=== PATIENT | female | born 1955 | race Caucasian/White ===

== ENCOUNTER 2018-02-17 18:11 | Emergency (ER) | payer OTHER ==
[2018-02-17 18:17] VITALS: BP 158/68
--- NOTE | 2018-02-17 18:56 | EDM.PDOC ---
ED HPI GENERAL MEDICAL PROBLEM - General Chief Complaint: Lower Extremity Injury/Pain Stated Complaint: right ankle pain Time Seen by Provider: 02/17/18 18:38 Source of Information: Reports: Patient History Limitations: Reports: No Limitations - History of Present Illness INITIAL COMMENTS - FREE TEXT/NARRATIVE: Has been having right ankle pain for the last several days that is progressively getting worse. Denies any injury. 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 Has had pain in the past but not this bad. Pain is worst after she has been off of it for short time and then tries to walk on it again. Denies any numbness or tingling to it. Location: Reports: Lower Extremity, Right Quality: Reports: Throbbing Severity: Moderate Right Ankle Pain Score (Numeric/FACES): 3 - Related Data Allergies Allergy/AdvReac Type Severity Reaction Status Date / Time acetaminophen Allergy Rash Verified 02/17/18 18:13 [From Darvocet-N] propoxyphene napsylate Allergy Rash Verified 02/17/18 18:13 [From Darvocet-N] Home Meds: Home Meds Estradiol 1 mg PO DAILY 11/08/15 [History] Fenofibrate 160 mg PO DAILY 11/08/15 [History] Insulin Detemir [Levemir Flextouch] 60 units SUBCUT DAILY 11/08/15 [History] Lisinopril 10 mg PO DAILY 11/08/15 [History] Rosuvastatin [Crestor] 20 mg PO DAILY 11/08/15 [History] metFORMIN [Glucophage XR] 500 mg PO DAILY 11/08/15 [History] Aspirin/Caffeine [Anacin 400-32 mg Tablet] 1 tab PO DAILY 12/13/17 [History] Cholecalciferol (Vitamin D3) [Vitamin D3] 1,000 unit PO DAILY 12/13/17 [History] Cyanocobalamin (Vitamin B-12) [Cyanocobalamin Injection] 1,000 mcg SQ Q30D 12/13 [History] Liraglutide [Victoza] 1.8 mg SQ DAILY 12/13/17 [History] Magnesium 250 mg PO DAILY 12/13/17 [History] Naproxen Sodium [Aleve] 220 mg PO DAILY PRN 02/17/18 [History] Ubidecarenone [Coq10] 1 cap PO DAILY 02/17/18 [History] Past Medical History HEENT History: Reports: Allergic Rhinitis, Sinusitis Cardiovascular History: Reports: High Cholesterol, Hypertension, Other (See Below) Other Cardiovascular History: left carotid bruit Genitourinary History: Reports: Other (See Below) Other Genitourinary History: nocturia Musculoskeletal History: Reports: Arthritis Other Musculoskeletal History: achilles tendinitis Endocrine/Metabolic History: Reports: Diabetes, Type II, Vitamin D Deficiency Dermatologic History: Reports: Other (See Below) Other Dermatologic History: nummular eczema - Past Surgical History HEENT Surgical History: Reports: Tonsillectomy GI Surgical History: Reports: Colonoscopy Female Surgical History: Reports: Hysterectomy Musculoskeletal Surgical History: Reports: Arthroscopic Knee, Knee Replacement Social & Family History - Tobacco Use Smoking Status *Q: Never Smoker Review of Systems - Review of Systems Review Of Systems: See Below Musculoskeletal: Reports: Foot Pain, Joint Swelling ED EXAM, GENERAL - Physical Exam Exam: See Below Exam Limited By: No Limitations General Appearance: Alert, Moderate Distress Extremities: Normal Range of Motion, Other (Tender to the lateral maleolus and along the fifth metatarsal area. No numbness or tingling. No bruising or open areas. Good pulses noted. Does have increase in pain with weightbearing.) Neurological: Alert Skin Exam: Warm, Dry, Intact Course - Vital Signs Last Recorded V/S: Last Vital Signs Temp 98.4 F 02/17/18 18:14 Pulse 104 H 02/17/18 18:14 Resp 20 02/17/18 18:14 BP 158/68 H 02/17/18 18:14 Pulse Ox 95 02/17/18 18:14 - Orders/Labs/Meds Orders: Active Orders 24 hr Category Date Time Status Ankle Min 3V Rt [CR] Stat Exams 02/17/18 18:23 Ordered Labs: Laboratory Tests 02/17/18 02/17/18 Range/Units 18:30 18:30 WBC 6.9 (5.0-10.0) 10^3/uL RBC 4.18 (4.00-5.50) 10^6/uL Hgb 12.6 (12.0-16.0) g/dL Hct 37.6 (37.0-47.0) % MCV 90.0 (82.0-94.0) fL MCH 30.1 (27.0-32.0) pg MCHC 33.5 (33.0-38.0) g/dL RDW Coeff of Greg 12.8 (11.0-15.0) % Plt Count 242 (150-400) 10^3/uL Neut % (Auto) 51.0 (35-85) % Lymph % (Auto) 37.1 (10-55) % [place] % (Auto) 8.6 (0-16) % Eos % (Auto) 3.0 (0-5) % Baso % (Auto) 0.3 (0-3) % Neut # (Auto) 3.52 (1.80-7.00) 10^3/uL Lymph # (Auto) 2.56 (1.00-4.80) 10^3/uL [place] # (Auto) 0.59 (0.00-0.80) 10^3/uL Eos # (Auto) 0.21 (0.00-0.45) 10^3/uL Baso # (Auto) 0.02 10^3/uL Uric Acid 5.4 (2.6-6.0) mg/dL C-Reactive Protein < 0.2 L (0.2-0.8) mg/dL Departure - Departure Time of Disposition: 19:00 Disposition: Home, Self-Care 01 Condition: Good Clinical Impression: Arthritis - Discharge Information Instructions: Arthritis, [id number] Additional Instructions: Aleve 1 tablet twice a day for inflammation and pain Tramadol that you have at home for pain if needed. recheck if not getting better Keep appt on Wednesday if ferrell continues. - Problem List & Annotations (1) Arthritis SNOMED Code(s): 6149374 Code(s): M19.90 - UNSPECIFIED OSTEOARTHRITIS, UNSPECIFIED SITE Status: Acute - Problem List Review Problem List Initiated/Reviewed/Updated: Yes - My Orders Last 24 Hours: My Active Orders 02/17/18 18:23 Ankle Min 3V Rt [CR] Stat - Assessment/Plan Last 24 Hours: My Active Orders 02/17/18 18:23 Ankle Min 3V Rt [CR] Stat
== END 2018-02-17 19:05 | disposition home or self-care (01) ==
LOC: CC.ED 18:11
DX: M19.90 Unspecified osteoarthritis, unspecified site (principal); E11.9 Type 2 diabetes mellitus without complications; I10 Essential (primary) hypertension; Z88.8 Allergy status to other drugs, medicaments and biological substances; Z79.899 Other long term (current) drug therapy
CPT/HCPCS: 36415; 73610-RT; 84550; 85025; 86140; 99283

== ENCOUNTER 2018-07-10 20:47 | Emergency (ER) | payer OTHER ==
[2018-07-10 20:51] VITALS: BP 147/62
[2018-07-10 21:35] LABS: CHLORIDE,CL 102 mEq/L (98-106); SODIUM,NA 142 mEq/L (136-145)
--- NOTE | 2018-07-10 21:47 | EDM.PDOC ---
ED HPI GENERAL MEDICAL PROBLEM - General Chief Complaint: General Stated Complaint: pain to left arm, increased BS Time Seen by Provider: 07/10/18 21:27 - History of Present Illness INITIAL COMMENTS - FREE TEXT/NARRATIVE: Celina is a 63 year old female who presents to the ED with c/o pain and swelling to medial aspect of left elbow. She reports that the pain came on this evening. She then checked her blood sugar and it was in the 300's so she became concerned and presented to the ED. She describes the pain as an achy sharp sensation on the medial aspect of her left elbow. Reports it does sometimes radiate down her arm and around. She denies any injury to the area. Denies any overuse of her elbow. Denies any redness or warmth to the affected area. Has not had any fever/chills. Reports she had similar pain and swelling 3 weeks ago and it just went away on its own. She has not tried any heat/ice. Has not taken any medications. She denies any other symptoms or complaints. Onset: Today, Sudden Location: Reports: Upper Extremity, Left Quality: Reports: Ache, Sharp Severity: Severe Improves with: Reports: None Worsens with: Reports: Other (palpitation), Movement Context: Reports: Activity, Lifting Associated Symptoms: Reports: Other (elevated blood sugar). Denies: Confusion, Chest Pain, Cough, cough w sputum, Diaphoresis, Fever/Chills, Headaches, Loss of Appetite, Malaise, Nausea/Vomiting, Rash, Seizure, Shortness of Breath, Syncope, Weakness Left Upper Arm Pain Score (Numeric/FACES): 7 - Related Data Allergies Allergy/AdvReac Type Severity Reaction Status Date / Time acetaminophen Allergy Rash Verified 07/10/18 20:51 [From Darvocet-N] propoxyphene napsylate Allergy Rash Verified 07/10/18 20:51 [From Darvocet-N] Home Meds: Home Meds Estradiol 1 mg PO DAILY 11/08/15 [History] Fenofibrate 160 mg PO DAILY 11/08/15 [History] Insulin Detemir [Levemir Flextouch] 55 units SUBCUT QPM 11/08/15 [History] Lisinopril 10 mg PO DAILY 11/08/15 [History] Rosuvastatin [Crestor] 20 mg PO DAILY 11/08/15 [History] metFORMIN [Glucophage XR] 500 mg PO BID 11/08/15 [History] Aspirin/Caffeine [Anacin 400-32 mg Tablet] 1 tab PO DAILY 12/13/17 [History] Cholecalciferol (Vitamin D3) [Vitamin D3] 1,000 unit PO DAILY 12/13/17 [History] Cyanocobalamin (Vitamin B-12) [Cyanocobalamin Injection] 1,000 mcg SQ Q30D 12/13 [History] Liraglutide [Victoza] 1.8 mg SQ DAILY 12/13/17 [History] Magnesium 250 mg PO DAILY 12/13/17 [History] Naproxen Sodium [Aleve] 220 mg PO DAILY PRN 02/17/18 [History] Ubidecarenone [Coq10] 1 cap PO DAILY 02/17/18 [History] Past Medical History HEENT History: Reports: Allergic Rhinitis, Sinusitis Cardiovascular History: Reports: High Cholesterol, Hypertension, Other (See Below) Other Cardiovascular History: left carotid bruit Genitourinary History: Reports: Other (See Below) Other Genitourinary History: nocturia Musculoskeletal History: Reports: Arthritis Other Musculoskeletal History: achilles tendinitis Endocrine/Metabolic History: Reports: Diabetes, Type II, Vitamin D Deficiency Dermatologic History: Reports: Other (See Below) Other Dermatologic History: nummular eczema - Past Surgical History HEENT Surgical History: Reports: Tonsillectomy GI Surgical History: Reports: Colonoscopy Female Surgical History: Reports: Hysterectomy Musculoskeletal Surgical History: Reports: Arthroscopic Knee, Knee Replacement Social & Family History - Tobacco Use Smoking Status *Q: Never Smoker - Recreational Drug Use Recreational Drug Use: No ED ROS GENERAL - Review of Systems Review Of Systems: ROS reveals no pertinent complaints other than HPI. Constitutional: Reports: No Symptoms. Denies: Fever, Chills, Weakness, Fatigue , Decreased Appetite HEENT: Reports: No Symptoms Respiratory: Reports: No Symptoms. Denies: Shortness of Breath, Pleuritic Chest Pain, Cough Cardiovascular: Reports: No Symptoms. Denies: Chest Pain, Dyspnea on Exertion, Edema, Lightheadedness, Syncope Endocrine: Reports: High Glucose GI/Abdominal: Denies: Abdominal Pain, Diarrhea, Decreased Appetite, Nausea, Vomiting : Reports: No Symptoms Musculoskeletal: Reports: Arm Pain, Joint Pain (left elbow), Other (radiates to wrist at times) Skin: Reports: No Symptoms Neurological: Reports: No Symptoms. Denies: Confusion, Dizziness, Numbness, Tingling, Weakness Psychiatric: Reports: No Symptoms Hematologic/Lymphatic: Reports: No Symptoms Immunologic: Reports: No Symptoms ED EXAM, GENERAL - Physical Exam Exam: See Below Exam Limited By: No Limitations General Appearance: Alert, WD/WN, No Apparent Distress Extremities: Normal Range of Motion, Normal Capillary Refill, Joint Swelling ( medial aspect of left elbow), Arm Pain (left elbow), Other (tenderness to medial aspect of left elbow, slight swelling). No: Increased Warmth, Redness Neurological: Alert, Oriented, CN II-XII Intact, Normal Cognition, Normal Gait, No Motor/Sensory Deficits Psychiatric: Anxious Skin Exam: Warm, Dry, Intact, Normal Color, No Rash Course - Vital Signs Last Recorded V/S: Last Vital Signs Temp 98.7 F 07/10/18 20:49 Pulse 102 H 07/10/18 20:49 Resp 20 07/10/18 20:49 BP 147/62 H 07/10/18 20:49 Pulse Ox 97 07/10/18 20:49 - Orders/Labs/Meds Labs: Laboratory Tests 07/10/18 07/10/18 Range/Units 21:20 21:20 WBC 6.8 (5.0-10.0) 10^3/uL RBC 4.04 (4.00-5.50) 10^6/uL Hgb 12.2 (12.0-16.0) g/dL Hct 36.7 L (37.0-47.0) % MCV 90.8 (82.0-94.0) fL MCH 30.2 (27.0-32.0) pg MCHC 33.2 (33.0-38.0) g/dL RDW Coeff of Greg 12.8 (11.0-15.0) % Plt Count 229 (150-400) 10^3/uL Neut % (Auto) 45.3 (35-85) % Lymph % (Auto) 42.9 (10-55) % [place] % (Auto) 9.8 (0-16) % Eos % (Auto) 1.9 (0-5) % Baso % (Auto) 0.1 (0-3) % Neut # (Auto) 3.08 (1.80-7.00) 10^3/uL Lymph # (Auto) 2.92 (1.00-4.80) 10^3/uL [place] # (Auto) 0.67 (0.00-0.80) 10^3/uL Eos # (Auto) 0.13 (0.00-0.45) 10^3/uL Baso # (Auto) 0.01 10^3/uL Sodium 142 (136-145) mEq/L Potassium 4.4 (3.5-5.0) mEq/L Chloride 102 (98-106) mEq/L Carbon Dioxide 28 (21-32) mmol/L BUN 22 H (7-18) mg/dL Creatinine 0.9 (0.6-1.0) mg/dL Est Cr Clr Drug Dosing 47.65 mL/min Estimated GFR (MDRD) > 60 (>=60) mL/min Glucose 235 H D (75-99) mg/dL Calcium 9.3 (8.4-10.1) mg/dL Total Bilirubin 0.2 (0.0-1.0) mg/dL AST 14 L (15-37) U/L ALT 26 (12-78) U/L Alkaline Phosphatase 61 (46-116) U/L C-Reactive Protein < 0.2 L (0.2-0.8) mg/dL Total Protein 7.1 (6.4-8.2) g/dL Albumin 3.7 (3.4-5.0) g/dL - Re-Assessments/Exams Free Text/Narrative Re-Assessment/Exam: Discussed exam findings and lab results with patient. Departure - Departure Time of Disposition: 22:01 Disposition: Home, Self-Care 01 Condition: Good Clinical Impression: Medial epicondylitis of left elbow, Hyperglycemia - Discharge Information *PRESCRIPTION DRUG MONITORING PROGRAM REVIEWED*: Not Applicable *COPY OF PRESCRIPTION DRUG MONITORING REPORT IN PATIENT VINICIUS: Not Applicable Instructions: Golfer's Elbow Referrals: Reji Robles MD [Primary Care Provider] - Forms: ED Department Discharge Additional Instructions: Compress area with jsoee wrap as needed Ibuprofen 600 mg every 6 hours the next 3 days then as needed for pain Ice affected area as needed for comfort Activity as tolerated to left elbow Follow up in clinic if symptoms worsen or do not improve
== END 2018-07-10 22:10 | disposition home or self-care (01) ==
LOC: CC.ED 20:47
DX: M77.02 Medial epicondylitis, left elbow (principal); E11.65 Type 2 diabetes mellitus with hyperglycemia; I10 Essential (primary) hypertension; Z88.8 Allergy status to other drugs, medicaments and biological substances; Z79.899 Other long term (current) drug therapy
CPT/HCPCS: 36415; 80053; 85025; 86140; 99283

== ENCOUNTER → 2019-01-06 | Day surgery (SDC) | payer OTHER ==
[~2019-01-06] MED LIST: Lactated Ringers 1,000 ML IV SCH; Propofol 200 MG/20 ML SDV IV ONE
[2019-01-06 09:31] VITALS: BP 114/53
--- NOTE | 2019-01-06 13:24 | OR ---
DATE OF OPERATION: 01/06/2019 PREOPERATIVE DIAGNOSIS: SCREENING COLONOSCOPY. POSTOPERATIVE DIAGNOSIS: SCREENING COLONOSCOPY. SURGEON: Broderick Orozco MD PROCEDURE: FULL-LENGTH COLONOSCOPY. ANESTHESIA: MAC by CONDENSER SETTER. COMPLICATIONS: None. SPECIMEN: None. FINDINGS: 1. Full-length colonoscopy. 2. Ferrell diverticulosis. RECOMMENDATIONS: Follow up colonoscopy, 10 years. INDICATIONS: The patient is due for a screening colonoscopy at her recent physical and it has been 10 years since her last. DESCRIPTION OF PROCEDURE: The patient was prepped and draped, placed in the left lateral decubitus position. A lubricated Olympus colonoscope was inserted and easily advanced to the cecum. Direct visualization of the ileocecal valve was accomplished. Bowel prep was fine. Upon withdrawal of the scope, the patient has ferrell diverticular disease; mild over in the right colon, moderate in the left. No inflammatory changes seen throughout the length of the bowel. I could find no signs of polyps, masses, ulcerations, or bleeding sites. No vascular abnormalities or signs of colitis. The rectal vault was unremarkable. Retroflexion of the scope in the rectum showed no anal lesions. Air was suctioned. Scope was removed without complication. HERACLIO/JOSEP /[id number]
== END ==
LOC: CC.SDS 07:27
PROVIDERS: ATTEND Family Medicine
DX: Z12.11 Encounter for screening for malignant neoplasm of colon (principal); K57.30 Diverticulosis of large intestine without perforation or abscess without bleeding; Z88.5 Allergy status to narcotic agent; Z88.6 Allergy status to analgesic agent
CPT/HCPCS: 45378; J2704; J7120

== ENCOUNTER 2019-02-01 19:48 | Observation (INO) | payer OTHER ==
[2019-02-01] MEDS ORDERED: Ondansetron 4 MG Tab.DIS PO ONE (20:08)
[2019-02-01] MEDS ORDERED: Ketorolac 60 MG/2 ML SDV IM ONE (20:13)
[2019-02-01 20:26] LABS: CHLORIDE,CL 103 mEq/L (98-106); SODIUM,NA 140 mEq/L (136-145)
--- NOTE | 2019-02-01 21:41 | EDM.PDOC ---
ED HPI GENERAL MEDICAL PROBLEM - General Chief Complaint: Abdominal Pain Stated Complaint: abd pain Time Seen by Provider: 02/01/19 20:12 Source of Information: Reports: Patient History Limitations: Reports: No Limitations - History of Present Illness INITIAL COMMENTS - FREE TEXT/NARRATIVE: Patient presents to ER with complaints of RLQ pain that radiates around to her right lower quadrant. She states she has been noting the pain/discomfort over the last 2 days but it worsened this afternoon. 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 She tried to lay down for an hour and then showered and did not see improvement. She has not had any fevers. Nausea just started this evening, had an emesis in the ER. No urinary complaints, no hematuria, no history of kidney stones. Does admit that she feels a bit more constipated as of late but had a stool earlier today. Has had a complete hysterectomy. Onset: Gradual Duration: Day(s): Location: Reports: Abdomen, Back Quality: Reports: Sharp Severity: Moderate Improves with: Reports: None Associated Symptoms: Reports: Nausea/Vomiting. Denies: Confusion, Chest Pain, Cough, Fever/Chills, Loss of Appetite, Shortness of Breath, Weakness Right Abdominal Pain Score (Numeric/FACES): 5 - Related Data Allergies Allergy/AdvReac Type Severity Reaction Status Date / Time acetaminophen Allergy Rash Verified 02/01/19 20:00 [From Darvocet-N] propoxyphene napsylate Allergy Rash Verified 02/01/19 20:00 [From Darvocet-N] Home Meds: Home Meds RX: Fenofibrate 160 mg PO DAILY 11/08/15 [History] RX: Lisinopril 10 mg PO DAILY 11/08/15 [History] RX: metFORMIN [Glucophage XR] 1,000 mg PO BID 11/08/15 [History] Rosuvastatin [Crestor] 20 mg PO DAILY 11/08/15 [History] Cholecalciferol (Vitamin D3) [Vitamin D3] 5,000 unit PO DAILY 12/13/17 [History] Liraglutide [Victoza] 1.8 mg SQ DAILY 12/13/17 [History] RX: Magnesium 250 mg PO DAILY 12/13/17 [History] Ubidecarenone [Coq10] 1 cap PO DAILY 02/17/18 [History] Insulin Degludec [Tresiba] 84 unit SUBCUT DAILY 01/04/19 [History] RX: Aspirin [Halfprin] 81 mg PO DAILY 01/04/19 [History] RX: Estradiol 1 mg PO DAILY 01/06/19 [History] Past Medical History HEENT History: Reports: Allergic Rhinitis, Sinusitis Cardiovascular History: Reports: High Cholesterol, Hypertension, Other (See Below) Other Cardiovascular History: left carotid bruit Genitourinary History: Reports: Other (See Below) Other Genitourinary History: nocturia Musculoskeletal History: Reports: Arthritis Other Musculoskeletal History: achilles tendinitis Endocrine/Metabolic History: Reports: Diabetes, Type II, Vitamin D Deficiency Dermatologic History: Reports: Other (See Below) Other Dermatologic History: nummular eczema - Past Surgical History HEENT Surgical History: Reports: Tonsillectomy Cardiovascular Surgical History: Reports: Other (See Below) Other Cardiovascular Surgeries/Procedures: stent placement GI Surgical History: Reports: Colonoscopy Female Surgical History: Reports: Hysterectomy Musculoskeletal Surgical History: Reports: Arthroscopic Knee, Knee Replacement Social & Family History - Family History Family Medical History: Noncontributory - Tobacco Use Smoking Status *Q: Former Smoker Used Tobacco, but Quit: Yes Month/Year Tobacco Last Used: 27yrs ago - Caffeine Use Caffeine Use: Reports: Coffee - Recreational Drug Use Recreational Drug Use: No ED ROS GENERAL - Review of Systems Review Of Systems: See Below Constitutional: Denies: Fever, Chills, Malaise, Weakness, Fatigue, Decreased Appetite HEENT: Reports: No Symptoms Respiratory: Denies: Shortness of Breath, Cough Cardiovascular: Denies: Chest Pain, Edema, Lightheadedness Endocrine: Denies: Fatigue GI/Abdominal: Reports: Abdominal Pain, Constipation, Nausea, Vomiting. Denies: Decreased Appetite : Reports: No Symptoms Musculoskeletal: Reports: No Symptoms Skin: Reports: No Symptoms Neurological: Reports: No Symptoms ED EXAM, GI/ABD - Physical Exam Exam: See Below Exam Limited By: No Limitations General Appearance: Alert, WD/WN, Mild Distress Ears: Normal External Exam, Normal TMs Nose: Normal Inspection, Normal Mucosa, No Blood Throat/Mouth: Normal Inspection, Normal Oropharynx Head: Normocephalic Neck: Normal Inspection, Supple, Non-Tender Respiratory/Chest: No Respiratory Distress, Lungs Clear, Normal Breath Sounds Cardiovascular: Regular Rate, Rhythm GI/Abdominal Exam: Normal Bowel Sounds, Soft, Guarding (RLQ), Tender Extremities: Normal Inspection, Normal Capillary Refill Neurological: Alert, Oriented Skin Exam: Warm, Dry Course - Vital Signs Last Recorded V/S: Last Vital Signs Temp 99.1 F 02/01/19 19:49 Pulse 97 02/01/19 19:49 Resp 18 02/01/19 19:49 BP 153/77 H 02/01/19 19:49 Pulse Ox 96 02/01/19 19:49 - Orders/Labs/Meds Orders: Active Orders 24 hr Category Date Time Status Abdomen Pelvis wo Cont [CT] Stat Exams 02/01/19 20:21 Taken Labs: Laboratory Tests 02/01/19 02/01/19 02/01/19 Range/Units 20:05 20:05 20:05 WBC 9.2 (5.0-10.0) 10^3/uL RBC 4.31 (4.00-5.50) 10^6/uL Hgb 12.9 (12.0-16.0) g/dL Hct 38.3 (37.0-47.0) % MCV 88.9 (82.0-94.0) fL MCH 29.9 (27.0-32.0) pg MCHC 33.7 (33.0-38.0) g/dL RDW Coeff of Greg 13.2 (11.0-15.0) % Plt Count 266 (150-400) 10^3/uL Neut % (Auto) 67.9 (35-85) % Lymph % (Auto) 22.1 (10-55) % [place] % (Auto) 9.1 (0-16) % Eos % (Auto) 0.8 (0-5) % Baso % (Auto) 0.1 (0-3) % Neut # (Auto) 6.23 (1.80-7.00) 10^3/uL Lymph # (Auto) 2.02 (1.00-4.80) 10^3/uL [place] # (Auto) 0.83 H (0.00-0.80) 10^3/uL Eos # (Auto) 0.07 (0.00-0.45) 10^3/uL Baso # (Auto) 0.01 10^3/uL Sodium 140 (136-145) mEq/L Potassium 4.5 (3.5-5.0) mEq/L Chloride 103 (98-106) mEq/L Carbon Dioxide 26 (21-32) mmol/L BUN 30 H (7-18) mg/dL Creatinine 1.2 H (0.6-1.0) mg/dL Est Cr Clr Drug Dosing 35.74 mL/min Estimated GFR (MDRD) 45 L (>=60) mL/min Glucose 164 H (75-99) mg/dL Calcium 9.7 (8.4-10.1) mg/dL Total Bilirubin 0.3 (0.0-1.0) mg/dL AST 21 (15-37) U/L ALT 32 (12-78) U/L Alkaline Phosphatase 66 (46-116) U/L C-Reactive Protein < 0.2 L (0.2-0.8) mg/dL Total Protein 7.4 (6.4-8.2) g/dL Albumin 3.3 L (3.4-5.0) g/dL Lipase (73-393) U/L Urine Color Yellow (YELLOW) Urine Appearance Clear (CLEAR) Urine pH 5.5 (4.5-8.0) Ur Specific [place] 1.025 H (1.003-1.020) Urine Protein Negative (NEGATIVE) mg/dL Urine Glucose (UA) Negative (NEGATIVE) mg/dL Urine Ketones Negative (NEGATIVE) mg/dL Urine Occult Blood Large H (NEGATIVE) Urine Nitrite Negative (NEGATIVE) Urine Bilirubin Negative (NEGATIVE) Urine Urobilinogen 0.2 (0.2-1.0) EU/dL Ur Leukocyte Esterase Negative (NEGATIVE) Urine RBC 50-75 H (0-5) /HPF Urine WBC 0-5 (0-5) /HPF Ur Epithelial Cells Few H (NOT SEEN) /HPF Urine Bacteria Few H (NOT SEEN) /HPF Urine Yeast Few H (NOT SEEN) /HPF 02/01/19 Range/Units 20:05 WBC (5.0-10.0) 10^3/uL RBC (4.00-5.50) 10^6/uL Hgb (12.0-16.0) g/dL Hct (37.0-47.0) % MCV (82.0-94.0) fL MCH (27.0-32.0) pg MCHC (33.0-38.0) g/dL RDW Coeff of Greg (11.0-15.0) % Plt Count (150-400) 10^3/uL Neut % (Auto) (35-85) % Lymph % (Auto) (10-55) % [place] % (Auto) (0-16) % Eos % (Auto) (0-5) % Baso % (Auto) (0-3) % Neut # (Auto) (1.80-7.00) 10^3/uL Lymph # (Auto) (1.00-4.80) 10^3/uL [place] # (Auto) (0.00-0.80) 10^3/uL Eos # (Auto) (0.00-0.45) 10^3/uL Baso # (Auto) 10^3/uL Sodium (136-145) mEq/L Potassium (3.5-5.0) mEq/L Chloride (98-106) mEq/L Carbon Dioxide (21-32) mmol/L BUN (7-18) mg/dL Creatinine (0.6-1.0) mg/dL Est Cr Clr Drug Dosing mL/min Estimated GFR (MDRD) (>=60) mL/min Glucose (75-99) mg/dL Calcium (8.4-10.1) mg/dL Total Bilirubin (0.0-1.0) mg/dL AST (15-37) U/L ALT (12-78) U/L Alkaline Phosphatase (46-116) U/L C-Reactive Protein (0.2-0.8) mg/dL Total Protein (6.4-8.2) g/dL Albumin (3.4-5.0) g/dL Lipase 1142 H (73-393) U/L Urine Color (YELLOW) Urine Appearance (CLEAR) Urine pH (4.5-8.0) Ur Specific [place] (1.003-1.020) Urine Protein (NEGATIVE) mg/dL Urine Glucose (UA) (NEGATIVE) mg/dL Urine Ketones (NEGATIVE) mg/dL Urine Occult Blood (NEGATIVE) Urine Nitrite (NEGATIVE) Urine Bilirubin (NEGATIVE) Urine Urobilinogen (0.2-1.0) EU/dL Ur Leukocyte Esterase (NEGATIVE) Urine RBC (0-5) /HPF Urine WBC (0-5) /HPF Ur Epithelial Cells (NOT SEEN) /HPF Urine Bacteria (NOT SEEN) /HPF Urine Yeast (NOT SEEN) /HPF Meds: Medications Discontinued Medications Generic Name Dose Route Start Last Admin Trade Name Oskar PRN Reason Stop Dose Admin Ketorolac Tromethamine 60 mg 02/01/19 20:13 02/01/19 20:17 Toradol IM 02/01/19 20:14 60 mg ONETIME ONE Administration Ondansetron HCl 4 mg 02/01/19 20:08 02/01/19 20:12 Zofran Odt PO 02/01/19 20:09 4 mg ONETIME ONE Administration - Re-Assessments/Exams Free Text/Narrative Re-Assessment/Exam: 02/01/19 21:42 Labs reviewed. Had initially had urine positive for blood so did do CT scan to rule out stone. Lipase results after so did discuss with Dr. Hogan. Patient admits to only minimal use of alcohol. Is a diabetic with known fatty liver. Dr. Hogan did review the CT to rule out pancreatitis. No noted stranding by the pancreas. Does have a 6 mm stone by the UPJ on the right, hydronephrosis noted. Advised patient of the results. Will admit to observation for IV fluids and pain control. Strain urine. Departure - Departure Time of Disposition: 21:48 Disposition: Refer to Observation Condition: Good Clinical Impression: Ureteral calculi - Discharge Information *PRESCRIPTION DRUG MONITORING PROGRAM REVIEWED*: No *COPY OF PRESCRIPTION DRUG MONITORING REPORT IN PATIENT VINICIUS: No Referrals: PCP,Unknown [Primary Care Provider] - - Problem List & Annotations (1) Ureteral calculi SNOMED Code(s): 37897738 Code(s): N20.1 - CALCULUS OF URETER Status: Acute Priority: High Current Visit: Yes - Problem List Review Problem List Initiated/Reviewed/Updated: Yes - My Orders Last 24 Hours: My Active Orders 02/01/19 20:21 Abdomen Pelvis wo Cont [CT] Stat - Assessment/Plan Admission H&P: Please use this note as an admission H&P Last 24 Hours: My Active Orders 02/01/19 20:21 Abdomen Pelvis wo Cont [CT] Stat Assessment:: Calculus of Ureter Plan: Admit to observation. IV fluids. Pain control. Strain urine.
[2019-02-01] MEDS ORDERED: fentaNYL 100 MCG/2 ML SDV IVPUSH PRN (23:44)
[2019-02-01] MEDS ORDERED: Ondansetron 4 MG Tab.DIS PO PRN (23:44)
[2019-02-01] MEDS ORDERED: Sodium Chloride 0.9% 10 ML Syringe FLUSH PRN (23:44)
[2019-02-01] MEDS ORDERED: Ondansetron 4 MG/2 ML SDV IV PRN (23:44)
[2019-02-01] MEDS ORDERED: Acetaminophen 325 MG Tab PO PRN (23:44)
[2019-02-01] MEDS ORDERED: Acetaminophen/oxyCODONE 325-5 MG Tab PO PRN (23:44)
[2019-02-01] MEDS ORDERED: Ketorolac 30 MG/ML SDV IVPUSH PRN (23:44)
[2019-02-01] MEDS ORDERED: Enoxaparin 40 MG/0.4 ML Syringe SUBCUT SCH (23:45)
[2019-02-01] MEDS: Sodium Chloride 0.9% 1,000 ML IV SCH (23:58)
[2019-02-02] MEDS: Sodium Chloride 0.9% 1,000 ML IV SCH (07:51)
[2019-02-02 07:54] VITALS: BP 119/57
[2019-02-02] MEDS ORDERED: UBIDECARENONE PO SCH (08:00)
[2019-02-02] MEDS ORDERED: **PTOM** Aspirin 81 MG Tab.EC PO SCH (08:00)
[2019-02-02] MEDS ORDERED: ESTRADIOL 1 MG PO SCH (08:00)
[2019-02-02] MEDS ORDERED: Enoxaparin 40 MG/0.4 ML Syringe SUBCUT SCH (08:00)
[2019-02-02] MEDS ORDERED: **PTOM** Lisinopril 10 MG Tab PO SCH (08:00)
[2019-02-02] MEDS ORDERED: FENOFIBRATE 160 MG PO SCH ×2 (08:00→20:00)
[2019-02-02] MEDS ORDERED: METFORMIN 500 MG PO SCH (08:00)
[2019-02-02] MEDS ORDERED: Cholecalciferol (Vitamin D3) 1,000 Unit Tab PO SCH (08:00)
[2019-02-02] MEDS ORDERED: LIRAGLUTIDE 1.8 MG SQ SCH (08:00)
[2019-02-02] MEDS ORDERED: Non-Formulary Medication 1 Each (Rosuvastatin [Crestor] 20 MG) PO SCH (08:00)
[2019-02-02] MEDS ORDERED: **PTOM** Cholecalciferol (Vitamin D3) 1,000 Unit Tab PO SCH (08:45)
[2019-02-02] MEDS ORDERED: INSULIN DEGLUDEC SUBCUT SCH (20:00)
[2019-02-02] MEDS ORDERED: Simvastatin 40 MG Tab PO SCH (20:00)
--- NOTE | 2019-02-02 21:37 | PCM.DCSUM1 ---
Discharge Summary - Hospital Course Free Text/Narrative:: Patient presented to ER with complaints of left flank and RLQ abdominal pain. Labs did show large amount of blood in urine, no infection. WBC normal. Lipase elevated. No history of alcohol abuse. CT scan of abdomen was done with noted 6 mm stone at the UPJ of the right ureter with hydronephrosis noted, no evidence of pancreatitis. Was given Toradol in the ER with good pain relief. Admitted for IV fluids and pain control. Diagnosis: Stroke: No Modified Ogden Scale: No Symptoms at All Modified Ogden Scale Score: 0 - Discharge Data Discharge Date: 02/02/19 Discharge Disposition: Home, Self-Care 01 Condition: Fair - Discharge Diagnosis/Problem(s) (1) Ureteral calculi SNOMED Code(s): 15329724 ICD Code: N20.1 - CALCULUS OF URETER Status: Acute Priority: High - Patient Summary/Data Complications: none Hospital Course: Hospital course uneventful. Has remained pain free while here since admission. Eating well without nausea. Has been up ambulating. No recurrence of pain. Voiding without difficulty, straining urine without evidence of stone. Will discharge home on Percocet and Flomax. Push fluids. Continue to strain urine. Follow up with Yohana next week. If does not pass stone, may need follow up with Dr. Lopez or sooner if pain severe. - Patient Instructions Diet: Usual Diet as Tolerated Activity: As Tolerated Other/Special Instructions: Strain urine~ bring specimen in for lab analysis if collected - Discharge Plan *PRESCRIPTION DRUG MONITORING PROGRAM REVIEWED*: No *COPY OF PRESCRIPTION DRUG MONITORING REPORT IN PATIENT VINICIUS: No Prescriptions/Med Rec: Acetaminophen/oxyCODONE [Percocet 325-5 MG] 2 tab PO Q4H PRN #30 tablet PRN Reason: Pain (Moderate 4-6) Tamsulosin HCl [Flomax] 0.4 mg PO DAILY #7 cap.er.24h Home Medications: Home Meds Fenofibrate 160 mg PO DAILY 11/08/15 [History] Lisinopril 10 mg PO DAILY 11/08/15 [History] Rosuvastatin [Crestor] 20 mg PO DAILY 11/08/15 [History] metFORMIN [Glucophage XR] 1,000 mg PO BID 11/08/15 [History] Cholecalciferol (Vitamin D3) [Vitamin D3] 5,000 unit PO DAILY 12/13/17 [History] Liraglutide [Victoza] 1.8 mg SQ DAILY 12/13/17 [History] Magnesium 250 mg PO DAILY 12/13/17 [History] Ubidecarenone [Coq10] 1 cap PO DAILY 02/17/18 [History] Aspirin [Halfprin] 81 mg PO DAILY 01/04/19 [History] Insulin Degludec [Tresiba] 84 unit SUBCUT DAILY 01/04/19 [History] Estradiol 1 mg PO DAILY 01/06/19 [History] Acetaminophen/oxyCODONE [Percocet 325-5 MG] 2 tab PO Q4H PRN #30 tablet [Rx] Tamsulosin HCl [Flomax] 0.4 mg PO DAILY #7 cap.er.24h 02/02/19 [Rx] Patient Handouts: Kidney Stones Forms: ED Department Discharge Referrals: Yohana Cardenas NP [ED Midlevel Provider] - (Follow up with Yohana on wednesday, February 07) - Discharge Summary/Plan Comment DC Time >30 min.: No - General Info Date of Service: 02/02/19 Admission Dx/Problem (Free Text: Ureteral Calculi Functional Status: Reports: Pain Controlled, Tolerating Diet, Ambulating, Urinating - Review of Systems General: Denies: Weakness, Fatigue, Malaise HEENT: Reports: No Symptoms Pulmonary: Denies: Shortness of Breath, Cough Cardiovascular: Denies: Chest Pain, Edema, Lightheadedness Gastrointestinal: Reports: Constipation. Denies: Abdominal Pain, Nausea, Vomiting Genitourinary: Reports: No Symptoms Musculoskeletal: Reports: No Symptoms Skin: Reports: No Symptoms Neurological: Reports: No Symptoms - Patient Data Vitals - Most Recent: Last Vital Signs Temp 97 F 02/02/19 07:52 Pulse 78 02/02/19 07:52 Resp 18 02/02/19 07:52 BP 119/57 L 02/02/19 09:05 Pulse Ox 98 02/02/19 07:52 Weight - Most Recent: 186 lb 9.6 oz I&O - Last 24 hours: Intake & Output 02/02/19 02/02/19 02/02/19 06:59 14:59 22:59 Intake Total 0 985 Output Total 250 Balance -250 985 Lab Results - Last 24 hrs: Laboratory Results - last 24 hr 02/02/19 02/02/19 Range/Units 07:55 11:41 POC Glucose 68 L 106 H (75-105) mg/dl Med Orders - Current: Current Medications Discontinued Medications Acetaminophen (Tylenol) 650 mg PO Q4H PRN PRN Reason: Pain (Mild 1-3)/fever Aspirin (Halfprin) 81 mg PO DAILY [facility] Last Admin: 02/02/19 09:06 Dose: 81 mg Cholecalciferol (Vitamin D3) 5,000 units PO DAILY [facility] Last Admin: 02/02/19 09:55 Dose: Not Given Cholecalciferol (Vitamin D3) 1,000 units PO DAILY [facility] Last Admin: 02/02/19 09:05 Dose: 1,000 units Enoxaparin Sodium (Lovenox) 40 mg SUBCUT BEDTIME [facility] Last Admin: 02/02/19 00:04 Dose: Not Given Enoxaparin Sodium (Lovenox) 40 mg SUBCUT DAILY [facility] Last Admin: 02/02/19 09:11 Dose: Not Given Estradiol (Estradiol) 1 mg PO DAILY [facility] Last Admin: 02/02/19 09:05 Dose: 1 mg Fenofibrate (Fenofibrate) 160 mg PO DAILY [facility] Last Admin: 02/02/19 09:54 Dose: Not Given Fenofibrate (Fenofibrate) 160 mg PO BEDTIME [facility] Fentanyl (Sublimaze) 25 mcg IVPUSH Q6H PRN PRN Reason: Pain Sodium Chloride (Normal Saline) 1,000 mls @ 125 mls/hr IV ASDIRECTED [facility] Last Admin: 02/02/19 07:51 Dose: 125 mls/hr Ketorolac Tromethamine (Toradol) 60 mg IM ONETIME ONE Stop: 02/01/19 20:14 Last Admin: 02/01/19 20:17 Dose: 60 mg Ketorolac Tromethamine (Toradol) 30 mg IVPUSH Q6H PRN PRN Reason: Pain Stop: 02/06/19 23:40 Lisinopril (Prinivil) 10 mg PO DAILY [facility] Last Admin: 02/02/19 09:05 Dose: 10 mg Magnesium Oxide (Magnesium Oxide) 250 mg PO DAILY [facility] Last Admin: 02/02/19 09:09 Dose: Not Given Metformin HCl (Glucophage Xr) 1,000 mg PO BIDMEALS [facility] Last Admin: 02/02/19 09:05 Dose: 1,000 mg Non-Formulary Medication (Insulin Degludec [Tresiba]) 84 unit SUBCUT BEDTIME [facility] Ptom Liraglutide ([Victoza] 1.8 Mg) 1.8 mg SQ DAILY [facility] Last Admin: 02/02/19 09:07 Dose: 1.8 mg Ptom Ubidecarenone [Coq10 ] 1 Cap 1 cap PO DAILY [facility] Last Admin: 02/02/19 09:06 Dose: 1 cap Ondansetron HCl (Zofran Odt) 4 mg PO ONETIME ONE Stop: 02/01/19 20:09 Last Admin: 02/01/19 20:12 Dose: 4 mg Ondansetron HCl (Zofran Odt) 4 mg PO Q6H PRN PRN Reason: nausea, able to take PO Ondansetron HCl (Zofran) 4 mg IV Q4H PRN PRN Reason: Nausea/Vomiting Oxycodone/Acetaminophen (Percocet 325-5 Mg) 2 tab PO Q4H PRN PRN Reason: Pain (moderate 4-6) Simvastatin (Zocor) 80 mg PO BEDTIME [facility] Sodium Chloride (Saline Flush) 10 ml FLUSH ASDIRECTED PRN PRN Reason: Keep Vein Open - Exam General: Reports: Alert, Oriented HEENT: Reports: Mucous Membr. Moist/[place] Neck: Reports: Supple Lungs: Reports: Clear to Auscultation, Normal Respiratory Effort Cardiovascular: Reports: Regular Rate, Regular Rhythm GI/Abdominal Exam: Normal Bowel Sounds, Soft, Non-Tender Extremities: Normal Inspection, No Pedal Edema Skin: Reports: Warm, Dry Neurological: Reports: No New Focal Deficit
== END 2019-02-02 14:50 | disposition home or self-care (01) ==
LOC: CC.ED 19:48 → UNDOADMOB 21:03 → CC.MS 21:03
PROVIDERS: ADMIT Physician Assistant Medical; ATTEND Family Medicine
DX: N13.2 Hydronephrosis with renal and ureteral calculous obstruction (principal); E11.9 Type 2 diabetes mellitus without complications; E78.00 Pure hypercholesterolemia, unspecified; I10 Essential (primary) hypertension; M19.90 Unspecified osteoarthritis, unspecified site; L30.0 Nummular dermatitis; Z87.891 Personal history of nicotine dependence; Z79.4 Long term (current) use of insulin; Z79.82 Long term (current) use of aspirin; Z79.899 Other long term (current) drug therapy; Z88.6 Allergy status to analgesic agent; Z88.8 Allergy status to other drugs, medicaments and biological substances
CPT/HCPCS: 36415; 74176; 80053; 81001; 82962; 83690; 85025; 86140; 96360; 96361; 96372; 99285-25; A9270-GY; G0378; J1885; J7030

== ENCOUNTER 2025-04-15 17:02 | Emergency (ER) | payer MEDICARE, BC ==
[2025-04-15] MEDS ORDERED: Sodium Chloride 0.9% 10 ML Syringe FLUSH PRN (17:11)
[2025-04-15] MEDS: Sodium Chloride 0.9% 1,000 ML IV ONE (17:33)
[2025-04-15 17:35] LABS: BASOPHILS ABSOLUTE AUTO 0.01 10^3/uL (0.00-0.50); BASOPHILS PERCENT AUTO 0.1 % (0-1); EOSINOPHILS ABSOLUTE AUTO 0.13 10^3/uL (0.00-1.50); EOSINOPHILS PERCENT AUTO 1.9 % (0-6); HEMATOCRIT 40.6 % (37.0-47.0); HEMOGLOBIN 13.5 g/dL (12.0-16.0); IMMATURE GRAN ABSOLUTE AUTO 0.09 10^3/uL (0.00-0.49); IMMATURE GRAN PERCENT AUTO 1.3 % (0.0-4.9); LYMPHOCYTES ABSOLUTE AUTO 1.85 10^3/uL (0.60-5.00); LYMPHOCYTES PERCENT AUTO 27.5 % (24-44); MEAN CORPUSCULAR HEMOGLOBIN 30.1 pg (27.0-32.0); MEAN CORPUSCULAR HGB CONC 33.3 g/dL (32.0-36.0); MEAN CORPUSCULAR VOLUME 90.4 fL (83.0-97.0); MONOCYTES ABSOLUTE AUTO 0.72 10^3/uL (0.00-1.50); MONOCYTES PERCENT AUTO 10.7 % (0-10); NEUTROPHILS ABSOLUTE AUTO 3.93 x10^3/uL (1.80-8.00); NEUTROPHILS PERCENT AUTO 58.5 % (41-71); PLATELET COUNT,PLT 227 10^3/uL (150-400); RED BLOOD CELL COUNT 4.49 x10^6/uL (4.00-5.50); WHITE BLOOD CELL COUNT,WBC 6.7 10^3/uL (4.0-11.0)
[2025-04-15] MEDS: Ondansetron 4 MG/2 ML SDV IVPUSH STA (17:45)
[2025-04-15 17:48] LABS: ALANINE AMINOTRANSFERASE,ALT 21 U/L (12-78); ALBUMIN 3.9 g/dL (3.4-5.0); ALKALINE PHOSPHATASE 55 U/L (46-116); ASPARTATE AMNIOTRANSFERASE,AST 17 U/L (15-37); BILIRUBIN TOTAL 0.6 mg/dL (0.0-1.0); BLOOD UREA NITROGEN,BUN 23 mg/dL (7-18); C-REACTIVE PROTEIN < 0.50 mg/dL (<=0.50); CALCIUM 9.3 mg/dL (8.4-10.1); CARBON DIOXIDE,CO2 21 mmol/L (21-32); CHLORIDE,CL 103 mEq/L (98-106); CREATININE 1.1 mg/dL (0.6-1.0); ESTIMATED GFR 54 mL/min (>=60); GLUCOSE RANDOM 192 mg/dL (75-99); POTASSIUM,K 3.9 mEq/L (3.5-5.0); PROTEIN TOTAL,TP 7.5 g/dL (6.4-8.2); SODIUM,NA 137 mEq/L (136-145)
[2025-04-15 18:14] VITALS: BP 134/69; PULSE 114
[2025-04-15 19:01] LABS: APPEARANCE,URINE CLOUDY (CLEAR); COLOR,URINE YELLOW (YELLOW); GLUCOSE,URINE NEGATIVE (NEGATIVE); KETONES,URINE 15 mg/dL (NEGATIVE); LEUKOCYTE ESTERASE,URINE TRACE (NEGATIVE); NITRITE,URINE NEGATIVE (NEGATIVE); OCCULT BLOOD,URINE NEGATIVE (NEGATIVE); PH,URINE 5.5 (4.5-8.0); PROTEIN,URINE 30 mg/dL (NEGATIVE); UROBILINOGEN,URINE 0.2 EU/dL (0.2-1.0)
[2025-04-15 19:10] LABS: AMORPHOUS SEDIMENT,URINE FEW /HPF (NOT SEEN); BACTERIA,URINE FEW /HPF (NOT SEEN); BILIRUBIN,URINE SMALL (NEGATIVE); RBC,URINE NOT SEEN /HPF (0-5); SQUAMOUS EPITHELIAL CELLS,UR MANY /HPF (NOT SEEN); WBC,URINE 0-5 /HPF (0-5)
[2025-04-15] MEDS: Take Home: Ondansetron 4 MG Tab.DIS, 2 Tab Pack PO ONE (19:28)
== END 2025-04-15 19:30 | disposition home or self-care (01) ==
LOC: CC.ED 17:02
DX: K52.9 Noninfective gastroenteritis and colitis, unspecified (principal); I10 Essential (primary) hypertension; E78.00 Pure hypercholesterolemia, unspecified; E11.9 Type 2 diabetes mellitus without complications; M19.90 Unspecified osteoarthritis, unspecified site; Z88.8 Allergy status to other drugs, medicaments and biological substances; Z79.899 Other long term (current) drug therapy; Z79.82 Long term (current) use of aspirin; Z79.84 Long term (current) use of oral hypoglycemic drugs; Z90.710 Acquired absence of both cervix and uterus
CPT/HCPCS: 36415; 80053; 81001; 85025; 86140; 96361; 96374; 99284; A9270; J2405; J7030